=== PATIENT | female | born 1975 | race Caucasian/White ===

== ENCOUNTER → 2016-12-27 | Outpatient (REF) | payer OTHER ==
[~2016-12-27] MED LIST: ACET50TA PO; BENA25TA4 PO; IBUP-1022 PO; IBUP600T26 PO; IBUP60TA PO; LORTTAB5 PO; OXYC1TAB23 PO; PRENTAB9 PO; ZOFR20TA PO; [UNRECOGNIZED DRUG - CODE] PO
[2016-12-27 20:02] LABS: MEAN CORPUSCULAR HGB CONC 34.3 g/dl (32.0-36.5); MEAN CORPUSCULAR VOLUME 93.4 fl (80.0-96.0); RED CELL DISTRIBUTION WIDTH 13.1 % (11.5-14.5); WHITE BLOOD COUNT 7.5 K/mm3 (4.0-10.0)
[2016-12-27 20:25] LABS: ALBUMIN/GLOBULIN RATIO 1.25 (1.00-1.93); ALKALINE PHOSPHATASE 58 U/L (45-117); ALT/SGPT 15 U/L (12-78); ANION GAP 6 MEQ/L (8-16); AST/SGOT 6 U/L (15-37); BILIRUBIN,TOTAL 1.2 MG/DL (0.2-1.0); BLOOD UREA NITROGEN 12 MG/DL (7-18); CALCIUM LEVEL 9.2 MG/DL (8.5-10.1); CARBON DIOXIDE LEVEL 29 MEQ/L (21-32); CHLORIDE LEVEL 106 MEQ/L (98-107); CREATININE FOR GFR 0.65 MG/DL (0.55-1.02); FREE T4 0.83 NG/DL (0.76-1.46); GLOMERULAR FILTRATION RATE > 60.0 (>58); GLUCOSE, FASTING 78 MG/DL (70-105); SODIUM LEVEL 141 MEQ/L (136-145); TOTAL PROTEIN 7.2 GM/DL (6.4-8.2)
[2016-12-28 10:53] LABS: THYROID PEROXIDASE ANTIBODY > 1300.0 U/ML (<60.0)
== END ==
LOC: M SFHCADAM 15:08
PROVIDERS: ATTEND Physician Assistant
DX: E03.9 Hypothyroidism, unspecified (principal); R42 Dizziness and giddiness; E55.9 Vitamin D deficiency, unspecified

== ENCOUNTER → 2017-02-07 | Outpatient (CLI) | payer OTHER ==
--- NOTE | 2017-02-20 09:42 | REP ---
MRI BRAIN WITHOUT CONTRAST: 02/07/2017. Clinical history: Vertigo for a few weeks. Technique: Sagittal T1, axial T1, T2, FLAIR, diffusion weighted images and ADC mapping sequences provided. Findings: The lateral ventricles are midline, symmetric and without dilatation or displacement. Basal ganglia appear symmetric and grossly normal. The alcazar-white junction differentiation was also well maintained. There are no T2 or FLAIR white matter hyperintense foci in the white matter tracts in either hemisphere. The cortical stripe is preserved. There is no vascular territory infarct, intracranial hemorrhage, mass or mass effect. No cortical atrophy or extra-axial fluid collection. Brainstem and cerebellum grossly intact. The seventh/eighth cranial nerve complexes were symmetric and normal. Slightly asymmetrically larger right than left temporal horn from the lateral ventricles. Orbits and contents symmetric and normal. There is deviation of nasal septum towards the left anteriorly and minor ethmoid sinus mucosal thickening. The other sinuses were clear. The corpus callosum, optic chiasm and pituitary are normal. There is no cerebellar tonsillar ectopia. Diffusion weighted images and the ADC mapping sequences show no evidence of acute ischemia. Impression: 1. No intracranial hemorrhage, acute infarct, mass, mass effect or edema. There is no atrophy or ventriculomegaly. Slightly asymmetrically larger right than left temporal horn of the lateral ventricles, anatomic variation is most likely. 2. Diffusion-weighted images and ADC mapping sequences show no evidence of restricted water diffusion or acute ischemia. 3. Minor ethmoid sinus mucosal thickening. Deviation of nasal septum towards the left. 4. This study is presented for my initial review on the date of this dictation. An earlier dictation could not be retrieved from the voice bank. Signed by Dipesh Mejía MD 02/20/2017 03:43 P
== END ==
LOC: M RAD 14:51
PROVIDERS: ATTEND Physician Assistant
DX: R42 Dizziness and giddiness (principal)

== ENCOUNTER → 2017-05-30 | Outpatient (REF) | payer OTHER | LOC: M LAB REF 17:32 | PROVIDERS: ATTEND Advanced Practice Midwife | DX: Z12.4 Encounter for screening for malignant neoplasm of cervix (principal) ==

== ENCOUNTER → 2017-06-09 | Outpatient (CLI) | payer OTHER ==
[2017-06-09 14:20] LABS: FREE T4 0.96 NG/DL (0.76-1.46)
== END ==
LOC: M RAD 11:57
DX: N92.0 Excessive and frequent menstruation with regular cycle (principal); D25.2 Subserosal leiomyoma of uterus
CPT/HCPCS: 76856

== ENCOUNTER → 2017-07-15 | Outpatient (REF) | payer OTHER ==
[2017-07-15 11:40] LABS: INFLUENZA A AMPLIFICATION NEGATIVE (NEGATIVE); INFLUENZA B AMPLIFICATION POSITIVE (NEGATIVE); RSV AMPLIFICATION NEGATIVE (NEGATIVE)
== END ==
LOC: M LAB REF 14:12
DX: J11.1 Influenza due to unidentified influenza virus with other respiratory manifestations (principal)

== ENCOUNTER → 2019-04-16 | Outpatient (CLI) | payer OTHER ==
[~2019-04-16] MED LIST changes: -ACET50TA PO; +IBUP600T42 PO; -IBUP60TA PO; +MAPA500T2 PO; -ZOFR20TA PO; +ZOFR4TAB16 PO
--- NOTE | 2019-04-17 08:46 | REP ---
MRI right ankle without contrast: History: Pain in the right ankle and right foot. Rule out chronic anterior talofibular ligament injury. The patient reports pain with morning stiffness. History of arthritis. She reports a lump on the front side of the ankle. There are no comparison radiographs available. Technique: Axial coronal and sagittal imaging planes were utilized. T1 and T2-weighted scans were included with and without fat saturation. MRI findings: Cortical and medullary bone signal intensity are normal. The tibial plafond and talar dome are intact. No evidence of osteochondral defect lesion is seen. There is no evidence of joint effusion or juxtaarticular cyst. No periarticular mass is seen. The proximal plantar fascia are mildly thickened consistent with plantar fasciitis. There is both Achilles and plantar calcaneal spurring. The Achilles tendon has a normal contour, thickness, and homogeneous low signal intensity. There is no evidence of flexor or extensor tendinopathy. There is no evidence of tarsal coalition. The anterior talofibular ligament has an intact appearance. The anterior inferior tibiofibular and the posterior inferior tibiofibular and posterior talofibular ligaments are intact as well. Calcaneal fibular ligament and deltoid ligamentous complex is unremarkable. Impression: No abnormality noted. Electronically Signed by Adrian Harrington MD 04/17/2019 10:22 A
== END ==
LOC: M RAD 18:10
PROVIDERS: ATTEND Orthopaedic Surgery Sports Medicine
DX: M25.571 Pain in right ankle and joints of right foot (principal)

== ENCOUNTER → 2019-07-11 | Outpatient (CLI) | payer OTHER ==
--- NOTE | 2019-07-12 02:12 | REP ---
Clinical: Lower back pain . Technique: AP, lateral, bilateral oblique, and coned-down views. Findings: Alignment and lordosis is maintained. The vertebral bodies including transverse process and spinous processes are intact and normal. There is no evidence for acute fracture / compression injury or subluxation. No evidence for spondylolysis or spondylolisthesis. No significant degenerative change is noted. Impression: Normal age-appropriate lumbosacral spine radiograph series. Electronically Signed by Chevy Espino MD 07/12/2019 02:03 A
== END ==
LOC: M ADAMS 13:44
PROVIDERS: ATTEND Physician Assistant
DX: M54.5 Low back pain (principal)

== ENCOUNTER → 2019-08-13 | Outpatient (REF) | payer OTHER ==
[2019-08-13 13:09] LABS: HEMATOCRIT 34.6 % (36.0-47.0); HEMOGLOBIN 10.6 g/dl (12.0-15.5); MEAN CORPUSCULAR HEMOGLOBIN 26.6 pg (27.0-33.0); MEAN CORPUSCULAR HGB CONC 30.6 g/dl (32.0-36.5); MEAN CORPUSCULAR VOLUME 86.9 fl (80.0-96.0); PLATELET COUNT, AUTOMATED 236 10^3/uL (150-450); RED BLOOD COUNT 3.98 10^6/uL (4.00-5.40); WHITE BLOOD COUNT 6.9 10^3/uL (4.0-10.0)
[2019-08-13 13:11] LABS: ALBUMIN 3.9 GM/DL (3.2-5.2); ALT/SGPT 19 U/L (12-78); BILIRUBIN,TOTAL 0.6 MG/DL (0.2-1.0); BLOOD UREA NITROGEN 14 MG/DL (7-18); CALCIUM LEVEL 8.8 MG/DL (8.5-10.1); CARBON DIOXIDE LEVEL 25 MEQ/L (21-32); CHLORIDE LEVEL 112 MEQ/L (98-107); CHOLESTEROL LEVEL 113 MG/DL (<200); CHOLESTEROL RISK RATIO 2.404 (<5); CREATININE FOR GFR 0.68 MG/DL (0.55-1.30); FREE T4 0.89 NG/DL (0.76-1.46); GLOMERULAR FILTRATION RATE > 60.0 (>58); GLUCOSE, FASTING 94 MG/DL (70-100); HDL CHOLESTEROL 47 MG/DL (>40); LDL CHOLESTEROL 51 MG/DL (<100); NON-HDL-C 66 MG/DL; POTASSIUM SERUM 4.5 MEQ/L (3.5-5.1); SODIUM LEVEL 142 MEQ/L (136-145); TOTAL PROTEIN 6.8 GM/DL (6.4-8.2); TRIGLYCERIDES LEVEL 73 MG/DL (<150)
== END ==
LOC: M SFHCADAM 08-12 15:58
PROVIDERS: ATTEND Physician Assistant
DX: M54.5 Low back pain (principal); E03.9 Hypothyroidism, unspecified; E55.9 Vitamin D deficiency, unspecified

== ENCOUNTER → 2019-08-14 | Outpatient (REF) | payer OTHER ==
[2019-08-14 19:24] LABS: PERCENT SATURATION 5.7 % (13.2-45.0)
[2019-08-14 19:33] LABS: FOLATE 12.3 NG/ML; TOTAL 25(OH) VITAMIN D 16.1 NG/ML (30.0-100.0)
== END ==
LOC: M SFHCADAM 15:26
PROVIDERS: ATTEND Physician Assistant
DX: E55.9 Vitamin D deficiency, unspecified (principal); D50.0 Iron deficiency anemia secondary to blood loss (chronic)

== ENCOUNTER → 2020-05-15 | Outpatient (CLI) | payer OTHER ==
--- NOTE | 2020-05-15 11:08 | REP ---
INDICATION: N63.10 RT BREAST LUMP. Palpable lump in the right breast on clinician breast exam. Patient does not feel. COMPARISON: Mammography none. TECHNIQUE: Bilateral CC and MLO) view(s) were taken. The right breast imaging is augmented by magnified focal spot compression CC, true mediolateral, and MLO views. A skin marker is affixed to the skin at the site of the palpable lump in the right breast. FINDINGS: Scattered fibroglandular elements are seen bilaterally. No suspicious or dominant density is seen. No microcalcification or architectural distortion is seen. No worrisome skin change is appreciated. 3-D tomosynthesis shows no additional finding. Breast parenchyma is nearly fat replaced. Few scattered elements of fibroglandular tissue. No mass lesion is seen in the area of the palpable lump. The Volpara volumetric breast density pattern is B. Targeted right breast sonography: Scanning in the area the palpable lump near the 6 o'clock position retroareolar region right breast shows normal stromal elements. No cyst or mass is seen by ultrasound. No acoustic shadowing or other suspicious finding. IMPRESSION: BIRADS/ACR category 1 negative mammographic and right breast sonographic findings.. This patient's Tyrer-Cuzick lifetime breast cancer risk assessment score is 11.4%. This mammogram was interpreted with the aid of an FDA-approved computer-aided detection system. The patient states she had a clinical breast exam in May of 2020. The patient letter being requested is 8 M2. RECOMMENDATION: Repeat screening mammography recommended 1 year (for women over 40). <Electronically signed by Constantino Harrington > 05/15/20 [id number]
== END ==
LOC: M WHC 08:21
PROVIDERS: ATTEND Advanced Practice Midwife
DX: N63.10 Unspecified lump in the right breast, unspecified quadrant (principal)
CPT/HCPCS: 76642; 77066; G0279

== ENCOUNTER → 2020-05-15 | Outpatient (REF) | payer OTHER | LOC: M SFHCWAGY 13:56 | PROVIDERS: ATTEND Advanced Practice Midwife | DX: Z01.411 Encounter for gynecological examination (general) (routine) with abnormal findings (principal); Z12.4 Encounter for screening for malignant neoplasm of cervix; Z77.9 Other contact with and (suspected) exposures hazardous to health; Z01.419 Encounter for gynecological examination (general) (routine) without abnormal findings ==

== ENCOUNTER → 2020-05-25 | Outpatient (CLI) | payer SELFPAY | LOC: M LABSMTC 14:25 | PROVIDERS: ATTEND Pediatrics | DX: Z20.828 Contact with and (suspected) exposure to other viral communicable diseases (principal) ==

== ENCOUNTER → 2020-07-20 | Outpatient (CLI) | payer OTHER ==
--- NOTE | 2020-07-20 14:36 | REP ---
INDICATION: R05 PRODUCTIVE COUGH COMPARISON: None. TECHNIQUE: PA and lateral. FINDINGS: The mediastinum and cardiac silhouette are normal. The lung martinez are clear and without acute consolidation, effusion, or pneumothorax. The skeletal structures are intact and normal. IMPRESSION: No acute cardiopulmonary process. <Electronically signed by Chevy Espino > 07/20/20 [id number]
== END ==
LOC: M ADAMS 13:54
PROVIDERS: ATTEND Physician Assistant
DX: R05 Cough (principal)

== ENCOUNTER → 2020-08-05 | Outpatient (CLI) | payer OTHER ==
--- NOTE | 2020-08-05 12:07 | REP ---
INDICATION: N92.1 MENOMETRORRHAGIA,D21.9 LEIOMYOMA. COMPARISON: 06/09/2017. TECHNIQUE: Transabdominal and transvaginal scanning performed. FINDINGS: Uterine dimensions are 11.3 x 5.1 x 6.8 cm. Endometrial echo is 13 mm in AP dimension and centrally placed. The endometrium has a trilaminar appearance. Uterus is mildly enlarged and heterogeneous. Once again a fibroid posteriorly in the left uterus measures 2.4 x 2.6 x 2.5 cm and appears similar to the prior exam. The bladder measures 7.0 x 9.8 x 4.8 cm. The right ovary has dimensions of 3.2 x 1.3 x 3.1 cm. Doppler interrogation was not performed. The left ovary dimensions are 2.8 x 2.6 x 2.0 cm. It's Doppler flow was normal with resistive index of 0.37. Complex cystic structure in the left ovary probably represents a complex dominant follicle to 1.7 x 1.5 x 1.7 cm. There is no other evidence of adnexal mass. No free fluid is seen in the cul-de-sac. IMPRESSION: Left posterior fibroid appears stable. Mildly enlarged heterogeneous uterus. No adnexal mass. No free fluid. Endometrial thickness 13 mm. <Electronically signed by Omkar Hernandez > 08/05/20 [id number]
== END ==
LOC: M WHC 10:26
PROVIDERS: ATTEND Advanced Practice Midwife
DX: N92.1 Excessive and frequent menstruation with irregular cycle (principal); D25.9 Leiomyoma of uterus, unspecified; N83.202 Unspecified ovarian cyst, left side

== ENCOUNTER → 2020-10-23 | Outpatient (CLI) | payer OTHER ==
[~2020-10-23] MED LIST changes: +ACET-907 PO; +CALC500T68 PO; +MULTTAB26 PO; +VIT1CAPS11 PO
== END ==
LOC: M LABSMTC 10:18
PROVIDERS: ATTEND Anesthesiology
DX: Z01.812 Encounter for preprocedural laboratory examination (principal); Z20.822 Contact with and (suspected) exposure to COVID-19

== ENCOUNTER 2020-10-28 07:37 | Day surgery (SDC) | payer OTHER ==
[~2020-10-28] VITALS: Ht 162.6 cm; Wt 113.9 kg
[~2020-10-28 07:37] MED LIST changes: +LR 1,000 ML IV ONE
[2020-10-28] MEDS ORDERED: ONDANSETRON 4MG/2ML VIAL As Ordered ONE (07:57)
[2020-10-28] MEDS ORDERED: dexameTHASONE 4 MG/ML 1ML VIAL (J1100 PER 1MG) As Ordered ONE (07:57)
[2020-10-28] MEDS ORDERED: LIDOCAINE 2% 100MG/5ML SDV (FOR ANES.) As Ordered ONE (07:57)
[2020-10-28] MEDS ORDERED: MIDAZOLAM INJ 2MG/2ML VIAL (J2250 PER 1MG) As Ordered ONE (07:57)
[2020-10-28] MEDS ORDERED: propofoL 200 MG/20 ML VIAL As Ordered ONE (07:57)
[2020-10-28] MEDS ORDERED: fentaNYL 100 MCG/2 ML INJECTION (J3010) As Ordered ONE (07:57)
[2020-10-28] MEDS ORDERED: KETOROLAC 60MG 2ML VIAL As Ordered ONE (08:06)
[2020-10-28] MEDS ORDERED: METOCLOPRAMIDE INJ 10MG/2ML VIAL (J2765 PER 1) As Ordered ONE (08:08)
[2020-10-28 08:17] LABS: HEMATOCRIT 35.6 % (36.0-47.0); HEMOGLOBIN 11.3 g/dl (12.0-15.5); MEAN CORPUSCULAR HEMOGLOBIN 27.9 pg (27.0-33.0); MEAN CORPUSCULAR HGB CONC 31.7 g/dl (32.0-36.5); MEAN CORPUSCULAR VOLUME 87.9 fl (80.0-96.0); PLATELET COUNT, AUTOMATED 261 10^3/uL (150-450); RED BLOOD COUNT 4.05 10^6/uL (4.00-5.40); WHITE BLOOD COUNT 6.7 10^3/uL (4.0-10.0)
[2020-10-28] MEDS ORDERED: LIDOCAINE 1% SDV 30ML VIAL As Ordered ONE (08:40)
[2020-10-28] MEDS ORDERED: ACETAMINOPHEN 1000MG 100ML IV BTL (OFIRMEV) (J0131 PER 10MG) As Ordered ONE (09:06)
--- NOTE | 2020-10-28 09:48 | ROOPDOC ---
[facility] Report Of Operation Report of Operation DATE OF PROCEDURE: 10/28/20 PREPROCEDURE DIAGNOSES: Menorrhagia. POSTPROCEDURE DIAGNOSES: Same. PROCEDURE: Hysteroscopy, D&C, Novasure endometrial ablation. SURGEON: Arya Caraballo MD ANESTHESIA: Gen. via LMA. ESTIMATED BLOOD LOSS: Approximately 10 mL. COMPLICATIONS: None. FINDINGS: normal-appearing endometrial cavity. PROCEDURE NOTE: Patient taken to the operating room where LMA anesthesia was induced. She was prepped draped sterile fashion in dorsal lithotomy position. The bladder was emptied with a catheter. A Speculum was placed in the vagina. The anterior lip of the cervix was grasped with tenaculum. Cervix dilated with tapered dilators. A diagnostic hysteroscope using normal saline as the distention media was inserted through the internal os. Visualization the endometrial cavity revealed findings noted above. Sharp curettage was performed. A NovaSure device was assembled. The cavity length was calculated at 4.5 cm. The device was inserted through the internal os. Cavity width was 4.4 cm. Total power setting was 109 Mcdonald. A successful cavity assessment was performed. Coagulation was initiated. Total coagulation time was 2 minutes. The NovaSure device was removed. A hysteroscope was placed through the internal os. An excellent coagulation effect was noted throughout the endometrium with sparing of the cervix. All instruments removed. Sponge and instrument counts were correct. ARYA CARABALLO MD October 28, 2020 09:46
[2020-10-28] MEDS ORDERED: LR 1,000 ML IV SCH (09:50)
[2020-10-28] MEDS ORDERED: oxyCODONE 5MG TAB PO PRN (09:50)
[2020-10-28] MEDS ORDERED: fentaNYL 100 MCG/2 ML INJECTION (J3010) IV PRN (09:50)
[2020-10-28] MEDS ORDERED: ONDANSETRON 4MG/2ML VIAL IV PRN (09:50)
[2020-10-28] MEDS ORDERED: HYDROMORPHONE HCL 0.5 MG/ 0.5 ML SYRINGE (J1170 PER 1) IV PRN (09:50)
[2020-10-28] MEDS ORDERED: PERCOCET 5MG/325MG TAB PO PRN (09:50)
[2020-10-28] MEDS ORDERED: IBUP-1022 PO ×2 (11:32→11:34)
[2020-10-28] MEDS ORDERED: OXYC1TAB23 PO (11:33)
[2020-10-28 11:35] VITALS: BP 132/78
[2020-11-01] MEDS ORDERED: CEPH500C PO (10:44)
[2020-11-01] MEDS ORDERED: CIPR-249 PO (10:46)
== END 2020-10-28 11:40 | disposition home or self-care (01) ==
LOC: M SDC 07:37
PROVIDERS: ATTEND Specialist
DX: N85.00 Endometrial hyperplasia, unspecified (principal); G43.909 Migraine, unspecified, not intractable, without status migrainosus; R42 Dizziness and giddiness; E03.9 Hypothyroidism, unspecified; E55.9 Vitamin D deficiency, unspecified; E66.9 Obesity, unspecified; Z68.41 Body mass index [BMI] 40.0-44.9, adult; Z79.899 Other long term (current) drug therapy; Z87.891 Personal history of nicotine dependence
CPT/HCPCS: 36415; 58563; 85027; 88305; J0131; J1100; J1885; J2250; J2405; J2765; J3010

== ENCOUNTER → 2021-06-16 | Outpatient (REF) | payer OTHER ==
[~2021-06-16] MED LIST changes: +CEPH500C PO; +CIPR-249 PO; -LR 1,000 ML IV ONE
== END ==
LOC: M SFHCADAM 14:00
PROVIDERS: ATTEND Family Medicine
DX: D50.0 Iron deficiency anemia secondary to blood loss (chronic) (principal); N92.0 Excessive and frequent menstruation with regular cycle; E55.9 Vitamin D deficiency, unspecified

== ENCOUNTER → 2021-06-16 | Outpatient (CLI) | payer OTHER ==
[2021-06-16 16:55] LABS: HEMATOCRIT 38.4 % (36.0-47.0); HEMOGLOBIN 12.7 g/dl (12.0-15.5); MEAN CORPUSCULAR HEMOGLOBIN 30.2 pg (27.0-33.0); MEAN CORPUSCULAR HGB CONC 33.1 g/dl (32.0-36.5); MEAN CORPUSCULAR VOLUME 91.4 fl (80.0-96.0); PLATELET COUNT, AUTOMATED 258 10^3/uL (150-450); WHITE BLOOD COUNT 8.4 10^3/uL (4.0-10.0)
[2021-06-16 17:29] LABS: PERCENT SATURATION 27.5 % (13.2-45.0)
== END ==
LOC: M LAB 16:19
PROVIDERS: ATTEND Family Medicine
DX: D50.0 Iron deficiency anemia secondary to blood loss (chronic) (principal)

== ENCOUNTER → 2021-08-25 | Outpatient (REF) | payer OTHER ==
[2021-08-25 16:31] LABS: ALBUMIN 3.9 GM/DL (3.2-5.2); ALT/SGPT 20 U/L (12-78); BILIRUBIN,TOTAL 0.8 MG/DL (0.2-1.0); BLOOD UREA NITROGEN 11 MG/DL (7-18); CALCIUM LEVEL 8.9 MG/DL (8.5-10.1); CARBON DIOXIDE LEVEL 28 MEQ/L (21-32); CHLORIDE LEVEL 108 MEQ/L (98-107); CHOLESTEROL LEVEL 126 MG/DL (<200); CREATININE FOR GFR 0.65 MG/DL (0.55-1.30); FREE T4 0.81 NG/DL (0.76-1.46); GLOMERULAR FILTRATION RATE > 60.0 (>58); GLUCOSE, FASTING 85 MG/DL (70-100); HDL CHOLESTEROL 43 MG/DL (>40); LDL CHOLESTEROL 50 MG/DL (<100); NON-HDL-C 83 MG/DL; POTASSIUM SERUM 4.1 MEQ/L (3.5-5.1); SODIUM LEVEL 141 MEQ/L (136-145); TOTAL PROTEIN 6.8 GM/DL (6.4-8.2); TRIGLYCERIDES LEVEL 167 MG/DL (<150)
== END ==
LOC: M SFHCADAM 13:56
PROVIDERS: ATTEND Family Medicine
DX: E03.9 Hypothyroidism, unspecified (principal); R76.8 Other specified abnormal immunological findings in serum; J30.89 Other allergic rhinitis

== ENCOUNTER → 2022-03-02 | Outpatient (REF) | payer OTHER ==
[~2022-03-02] MED LIST changes: +AMOX875T2; +FLUTISP
== END ==
LOC: M SFHCADAM 10:56
PROVIDERS: ATTEND Family Medicine
DX: E55.9 Vitamin D deficiency, unspecified (principal); Z53.8 Procedure and treatment not carried out for other reasons

== ENCOUNTER 2022-03-03 15:56 | Emergency (ER) | payer OTHER ==
[~2022-03-03] VITALS: Ht 162.6 cm; Wt 113.6 kg
[~2022-03-03 15:56] MED LIST changes: -AMOX875T2; -FLUTISP
[2022-03-03 15:58] VITALS: BP 133/91
[2022-03-03] MEDS ORDERED: AMOX875T2 (16:04)
[2022-03-03] MEDS ORDERED: FLUTISP (16:04)
[2022-03-03] MEDS ORDERED: LIDOCAINE W/EPINEPHRINE 1% 20ML VIAL SC ONE (17:15)
== END 2022-03-03 18:11 | disposition home or self-care (01) ==
LOC: M ED 15:56
DX: S01.511A Laceration without foreign body of lip, initial encounter (principal); W27.8XXA Contact with other nonpowered hand tool, initial encounter; Y99.0 Civilian activity done for income or pay

== ENCOUNTER → 2022-04-05 | Outpatient (CLI) | payer OTHER ==
[~2022-04-05] MED LIST changes: +AMOX875T2; +FLUTISP
== END ==
LOC: M LAB 16:35
PROVIDERS: ATTEND Family Medicine
DX: E55.9 Vitamin D deficiency, unspecified (principal)

== ENCOUNTER → 2022-04-08 | Outpatient (CLI) | payer OTHER | LOC: M WHC 09:38 | PROVIDERS: ATTEND Advanced Practice Midwife | DX: Z12.31 Encounter for screening mammogram for malignant neoplasm of breast (principal) ==

== ENCOUNTER → 2022-07-22 | Outpatient (REF) | payer OTHER ==
[~2022-07-22] MED LIST changes: +ACET1TAB55 PO; +ASPI81CH33 PO; +CLOB5CR TOP; +ERGO500029 PO; -FLUTISP; +FLUTISP NARES; +IBUP-1114 PO; +NYST-13 TOP; +SENN18TA PO
== END ==
LOC: M PLALAB 13:43
PROVIDERS: ATTEND Advanced Practice Midwife
DX: N90.4 Leukoplakia of vulva (principal)

== ENCOUNTER → 2022-07-25 | Outpatient (CLI) | payer OTHER ==
[~2022-07-25] MED LIST changes: -ACET1TAB55 PO; -ASPI81CH33 PO; -CLOB5CR TOP; +FLUTISP; -FLUTISP NARES; -IBUP-1114 PO; -NYST-13 TOP; -SENN18TA PO
== END ==
LOC: M LABSMTC 11:27
PROVIDERS: ATTEND Anesthesiology
DX: Z01.818 Encounter for other preprocedural examination (principal)

== ENCOUNTER 2022-07-27 09:19 | Day surgery (SDC) | payer OTHER ==
[~2022-07-27] VITALS: Ht 162.6 cm; Wt 112.0 kg
[~2022-07-27 09:19] MED LIST changes: +NS 1,000 ML IV ONE
[2022-07-27] MEDS ORDERED: LIDOCAINE 2% 100MG/5ML SDV (FOR ANES.) As Ordered ONE (10:30)
[2022-07-27] MEDS ORDERED: propofoL 200 MG/20 ML VIAL As Ordered ONE (10:30)
[2022-07-27 11:05] VITALS: BP 146/91
== END 2022-07-27 11:13 | disposition home or self-care (01) ==
LOC: M OPP 09:19
PROVIDERS: ATTEND Surgery
DX: Z12.11 Encounter for screening for malignant neoplasm of colon (principal); K64.1 Second degree hemorrhoids; G43.909 Migraine, unspecified, not intractable, without status migrainosus; Z79.52 Long term (current) use of systemic steroids; Z79.899 Other long term (current) drug therapy; Z91.040 Latex allergy status

== ENCOUNTER 2022-08-07 10:14 | Observation (INO) | payer OTHER ==
[~2022-08-07] VITALS: Ht 162.6 cm; Wt 113.0 kg
[~2022-08-07 10:14] MED LIST changes: -FLUTISP; +FLUTISP NARES; -NS 1,000 ML IV ONE
[2022-08-07] MEDS ORDERED: MORPHINE 4 MG/ML 1ML VIAL IV ONE (11:55)
[2022-08-07 12:08] LABS: HEMATOCRIT 41.5 % (36.0-47.0); HEMOGLOBIN 13.5 g/dl (12.0-15.5); MEAN CORPUSCULAR HEMOGLOBIN 30.3 pg (27.0-33.0); MEAN CORPUSCULAR HGB CONC 32.5 g/dl (32.0-36.5); MEAN CORPUSCULAR VOLUME 93.3 fl (80.0-96.0); PLATELET COUNT, AUTOMATED 262 10^3/uL (150-450); RED BLOOD COUNT 4.45 10^6/uL (4.00-5.40); WHITE BLOOD COUNT 14.6 10^3/uL (4.0-10.0)
[2022-08-07 12:18] LABS: INR 1.05; PARTIAL THROMBOPLASTIN TIME 25.2 SECONDS (24.8-34.2); PROTHROMBIN TIME 13.9 SECONDS (12.5-14.5)
[2022-08-07 12:34] LABS: BILIRUBIN,DIRECT 0.4 MG/DL (<0.4); BILIRUBIN,TOTAL 1.5 MG/DL (0.3-1.2); TOTAL PROTEIN 7.1 G/DL (5.7-8.2)
[2022-08-07 12:38] LABS: BLOOD UREA NITROGEN 13 MG/DL (9-23); CALCIUM LEVEL 8.8 MG/DL (8.5-10.1); CARBON DIOXIDE LEVEL 25 MMOL/L (20-31); CHLORIDE LEVEL 107 MMOL/L (98-107); CREATININE FOR GFR 0.59 MG/DL (0.55-1.30); GLOMERULAR FILTRATION RATE > 60.0 (>58); GLUCOSE, FASTING 104 MG/DL (60-100); POTASSIUM SERUM 4.9 MMOL/L (3.5-5.1); SODIUM LEVEL 139 MMOL/L (136-145)
[2022-08-07] MEDS ORDERED: KETOROLAC 30 MG/ML 1ML VIAL IV PRN (12:45)
[2022-08-07 12:46] LABS: RSV AMPLIFICATION NEGATIVE (NEGATIVE)
[2022-08-07 13:20] VITALS: BP 121/72
[2022-08-07] MEDS ORDERED: NYST-13 TOP (13:48)
[2022-08-07] MEDS ORDERED: CLOB5CR TOP (13:48)
[2022-08-07] MEDS ORDERED: HOME MED LIST COMPLETE! XX SCH (13:50)
[2022-08-07] MEDS ORDERED: MORPHINE 4 MG/ML 1ML VIAL IV PRN (14:55)
[2022-08-07] MEDS ORDERED: fentaNYL 100 MCG/2 ML INJECTION IV PRN ×2 (16:40→19:15)
[2022-08-07] MEDS ORDERED: ROPIvacaine 0.5% 30ML VIAL PN ONE (16:40)
[2022-08-07] MEDS: MIDAZOLAM INJ 2MG/2ML VIAL IV PRN ×2 (17:02→17:03)
[2022-08-07] MEDS ORDERED: TRANEXAMIC ACID 100 MG/ML 10ML VIAL As Ordered ONE (17:09)
[2022-08-07] MEDS ORDERED: ceFAZolin 2 GM/D5W 50 ML IV BAG As Ordered ONE (17:09)
[2022-08-07] MEDS ORDERED: ONDANSETRON 4MG 2ML VIAL As Ordered ONE (17:13)
[2022-08-07] MEDS ORDERED: propofoL 200 MG/20 ML VIAL As Ordered ONE (17:13)
[2022-08-07] MEDS ORDERED: LIDOCAINE 2% 100MG/5ML SDV (FOR ANES.) As Ordered ONE (17:13)
[2022-08-07] MEDS ORDERED: ROCURONIUM BROMIDE 50MG/5ML VIAL As Ordered ONE ×2 (17:13→17:56)
[2022-08-07] MEDS ORDERED: fentaNYL 100 MCG/2 ML INJECTION As Ordered ONE (17:13)
[2022-08-07] MEDS ORDERED: MIDAZOLAM INJ 2MG/2ML VIAL As Ordered ONE (17:13)
[2022-08-07] MEDS ORDERED: ACETAMINOPHEN 1000MG 100ML IV BAG As Ordered ONE (17:46)
[2022-08-07] MEDS ORDERED: SUGAMMADEX SODIUM 500 MG/5 ML VIAL (BRIDION) As Ordered ONE (17:53)
[2022-08-07] MEDS ORDERED: KETOROLAC 60MG 2ML VIAL As Ordered ONE (17:53)
[2022-08-07] MEDS ORDERED: BUPIVACAINE/EPIN 0.5% 30ML VIAL As Ordered ONE (17:54)
[2022-08-07] MEDS ORDERED: METOCLOPRAMIDE INJ 10MG/2ML VIAL As Ordered ONE (18:50)
[2022-08-07] MEDS ORDERED: LR 1,000 ML IV SCH (19:15)
[2022-08-07] MEDS ORDERED: oxyCODONE 5MG TAB PO PRN (19:15)
[2022-08-07] MEDS ORDERED: PROMETHAZINE 25MG/ML 1ML VIAL IV PRN (19:15)
[2022-08-07] MEDS ORDERED: SENNA 8.6 MG TAB (SENOKOT) PO PRN (19:30)
[2022-08-07] MEDS ORDERED: ACETAMINOPHEN TAB 650MG DOSE (2X325MG) PO PRN (19:30)
[2022-08-07] MEDS ORDERED: ONDANSETRON 4MG 2ML VIAL IV PRN (19:30)
[2022-08-07 20:15] VITALS: BP 120/70
[2022-08-07 20:58] VITALS: BP 114/70
[2022-08-07] MEDS ORDERED: ENOXAPARIN 40MG/0.4ML SYRINGE (J1650 PER 10MG) SC SCH (21:00)
[2022-08-07 21:37] VITALS: BP 112/68
[2022-08-07 22:41] VITALS: BP 109/68
[2022-08-08 02:00] VITALS: BP 102/95
[2022-08-08 05:29] VITALS: BP 101/60
[2022-08-08 07:07] LABS: HEMATOCRIT 37.2 % (36.0-47.0); HEMOGLOBIN 12.3 g/dl (12.0-15.5); MEAN CORPUSCULAR HEMOGLOBIN 30.8 pg (27.0-33.0); MEAN CORPUSCULAR HGB CONC 33.1 g/dl (32.0-36.5); MEAN CORPUSCULAR VOLUME 93.2 fl (80.0-96.0); PLATELET COUNT, AUTOMATED 262 10^3/uL (150-450); RED BLOOD COUNT 3.99 10^6/uL (4.00-5.40); WHITE BLOOD COUNT 15.1 10^3/uL (4.0-10.0)
[2022-08-08 07:38] LABS: BLOOD UREA NITROGEN 13 MG/DL (9-23); CALCIUM LEVEL 8.5 MG/DL (8.5-10.1); CARBON DIOXIDE LEVEL 22 MMOL/L (20-31); CHLORIDE LEVEL 107 MMOL/L (98-107); CREATININE FOR GFR 0.56 MG/DL (0.55-1.30); GLOMERULAR FILTRATION RATE > 60.0 (>58); GLUCOSE, FASTING 119 MG/DL (60-100); POTASSIUM SERUM 4.3 MMOL/L (3.5-5.1); SODIUM LEVEL 138 MMOL/L (136-145)
[2022-08-08] MEDS ORDERED: IBUP-1114 PO (09:36)
[2022-08-08] MEDS ORDERED: ACET1TAB55 PO (09:36)
[2022-08-08] MEDS ORDERED: SENN18TA PO (09:36)
[2022-08-08] MEDS ORDERED: ASPI81CH33 PO (09:37)
[2022-08-08 10:00] VITALS: BP 107/68
== END 2022-08-08 14:30 | disposition home health service (06) ==
LOC: M ED 10:14 → M ED INP 10:15 → ENRESERV 12:59 → M MS5PR 13:10
PROVIDERS: ADMIT Internal Medicine; ATTEND Student in an Organized Health Care Education/Training Program
DX: S82.841A Displaced bimalleolar fracture of right lower leg, initial encounter for closed fracture (principal); M77.31 Calcaneal spur, right foot; W10.8XXA Fall (on) (from) other stairs and steps, initial encounter; Y92.098 Other place in other non-institutional residence as the place of occurrence of the external cause; R20.0 Anesthesia of skin; R20.2 Paresthesia of skin; J30.1 Allergic rhinitis due to pollen; L40.9 Psoriasis, unspecified; Z91.040 Latex allergy status; Z79.899 Other long term (current) drug therapy
CPT/HCPCS: 27814; 36415; 64450; 71045; 73590; 73600; 73610; 73630; 80048; 80076; 85027; 85610; 85730; 87631; 93005; 96374; 96375; 96376; 97116; 97161; 97530; 99284; C1713; J0131; J0690; J1100; J1885; J2250; J2270; J2405; J2550; J2765; J3010; S0020

== ENCOUNTER → 2022-08-22 | Outpatient (CLI) | payer OTHER ==
[~2022-08-22] MED LIST changes: +ACET1TAB55 PO; +ASPI81CH33 PO; +CLOB5CR TOP; +IBUP-1114 PO; +NYST-13 TOP; +SENN18TA PO
== END ==
LOC: M SOG 08:08
PROVIDERS: ATTEND Orthopaedic Surgery Adult Reconstructive Orthopaedic Surgery
DX: S82.851D Displaced trimalleolar fracture of right lower leg, subsequent encounter for closed fracture with routine healing (principal); Y93.9 Activity, unspecified; Y92.9 Unspecified place or not applicable

== ENCOUNTER → 2022-09-16 | Outpatient (CLI) | payer OTHER ==
[~2022-09-16] MED LIST changes: +FLUT50SP17 NARES; -FLUTISP NARES
== END ==
LOC: M SOG 13:10
PROVIDERS: ATTEND Orthopaedic Surgery Adult Reconstructive Orthopaedic Surgery
DX: S82.851D Displaced trimalleolar fracture of right lower leg, subsequent encounter for closed fracture with routine healing (principal); Z98.890 Other specified postprocedural states

== ENCOUNTER 2022-10-05 10:00 | Outpatient (RCR) | payer OTHER | END 2022-10-09 | LOC: M PT 10:00 | PROVIDERS: ATTEND Orthopaedic Surgery Adult Reconstructive Orthopaedic Surgery | DX: S82.851D Displaced trimalleolar fracture of right lower leg, subsequent encounter for closed fracture with routine healing (principal) ==

== ENCOUNTER 2022-11-01 07:00 | Outpatient (RCR) | payer OTHER | END 2022-11-09 | LOC: M PT 07:00 | PROVIDERS: ATTEND Orthopaedic Surgery Adult Reconstructive Orthopaedic Surgery | DX: S82.851D Displaced trimalleolar fracture of right lower leg, subsequent encounter for closed fracture with routine healing (principal) ==

== ENCOUNTER → 2022-11-11 | Outpatient (CLI) | payer OTHER | LOC: M SOG 08:02 | PROVIDERS: ATTEND Orthopaedic Surgery | DX: S82.851D Displaced trimalleolar fracture of right lower leg, subsequent encounter for closed fracture with routine healing (principal) ==

== ENCOUNTER 2022-11-30 14:15 | Outpatient (RCR) | payer OTHER ==
[~2022-11-30 14:15] MED LIST changes: +SENN-111 PO; -SENN18TA PO
== END 2022-12-09 ==
LOC: M PT 14:15
PROVIDERS: ATTEND Orthopaedic Surgery Adult Reconstructive Orthopaedic Surgery
DX: S82.851D Displaced trimalleolar fracture of right lower leg, subsequent encounter for closed fracture with routine healing (principal)

== ENCOUNTER 2022-12-28 10:00 | Outpatient (RCR) | payer OTHER | END 2023-01-09 | LOC: M PT 10:00 | PROVIDERS: ATTEND Orthopaedic Surgery Adult Reconstructive Orthopaedic Surgery | DX: S82.851D Displaced trimalleolar fracture of right lower leg, subsequent encounter for closed fracture with routine healing (principal) ==

== ENCOUNTER 2023-01-12 13:27 | Outpatient (RCR) | payer OTHER | END 2023-02-09 | LOC: M PT 13:27 | PROVIDERS: ATTEND Orthopaedic Surgery Adult Reconstructive Orthopaedic Surgery | DX: S82.851D Displaced trimalleolar fracture of right lower leg, subsequent encounter for closed fracture with routine healing (principal) ==

== ENCOUNTER → 2023-02-15 | Outpatient (CLI) | payer OTHER | LOC: M SOG 07:54 | PROVIDERS: ATTEND Orthopaedic Surgery | DX: S82.841D Displaced bimalleolar fracture of right lower leg, subsequent encounter for closed fracture with routine healing (principal); M77.31 Calcaneal spur, right foot; Y93.9 Activity, unspecified; Y92.9 Unspecified place or not applicable ==

== ENCOUNTER → 2023-02-20 | Outpatient (CLI) | payer OTHER | LOC: M PLAIMG 10:13 | PROVIDERS: ATTEND Orthopaedic Surgery | DX: S93.401A Sprain of unspecified ligament of right ankle, initial encounter (principal); Y93.9 Activity, unspecified; Y92.9 Unspecified place or not applicable ==

== ENCOUNTER → 2023-02-22 | Outpatient (CLI) | payer OTHER | LOC: M SOG 09:16 | PROVIDERS: ATTEND Orthopaedic Surgery | DX: S93.431A Sprain of tibiofibular ligament of right ankle, initial encounter (principal); Y93.9 Activity, unspecified; Y92.9 Unspecified place or not applicable ==

== ENCOUNTER → 2023-09-07 | Outpatient (CLI) | payer OTHER ==
[~2023-09-07] MED LIST changes: -FLUT50SP17 NARES; +FLUTISP NARES
[2023-09-07 18:57] LABS: ALBUMIN 3.8 G/DL (3.2-5.2); ALKALINE PHOSPHATASE 46 U/L (46-116); ALT/SGPT < 9 U/L (7.0-40); AST/SGOT 10 U/L (<34); BILIRUBIN,TOTAL 0.7 MG/DL (0.3-1.2); BLOOD UREA NITROGEN 14 MG/DL (9-23); CALCIUM LEVEL 9.3 MG/DL (8.5-10.1); CARBON DIOXIDE LEVEL 26 MMOL/L (20-31); CHLORIDE LEVEL 107 MMOL/L (98-107); CHOLESTEROL LEVEL 140 MG/DL (<200); CHOLESTEROL RISK RATIO 2.93 (<5); CREATININE FOR GFR 0.59 MG/DL (0.55-1.30); GLOMERULAR FILTRATION RATE > 60.0 (>58); GLUCOSE, FASTING 91 MG/DL (60-100); HDL CHOLESTEROL 47.7 MG/DL (>40); HEMATOCRIT 39.9 % (36.0-47.0); HEMOGLOBIN 13.3 g/dl (12.0-15.5); LDL CHOLESTEROL 64.5 MG/DL (<100); MEAN CORPUSCULAR HEMOGLOBIN 31.5 pg (27.0-33.0); MEAN CORPUSCULAR HGB CONC 33.3 g/dl (32.0-36.5); MEAN CORPUSCULAR VOLUME 94.5 fl (80.0-96.0); NON-HDL-C 92.3 MG/DL; PLATELET COUNT, AUTOMATED 247 10^3/uL (150-450); POTASSIUM SERUM 3.9 MMOL/L (3.5-5.1); RED BLOOD COUNT 4.22 10^6/uL (4.00-5.40); SODIUM LEVEL 138 MMOL/L (136-145); TOTAL PROTEIN 6.8 G/DL (5.7-8.2); TRIGLYCERIDES LEVEL 139 MG/DL (<150); WHITE BLOOD COUNT 8.7 10^3/uL (4.0-10.0)
[2023-09-07 18:58] LABS: FREE T4 0.81 NG/DL (0.89-1.76)
[2023-09-07 18:59] LABS: THYROID STIMULATING HORMONE 5.207 uIU/ML (0.55-4.78); TOTAL 25(OH) VITAMIN D 16.5 NG/ML (20.0-100.0)
== END ==
LOC: M WUC 11:20
PROVIDERS: ATTEND Family Medicine
DX: E03.9 Hypothyroidism, unspecified (principal); E55.9 Vitamin D deficiency, unspecified; N92.1 Excessive and frequent menstruation with irregular cycle

== ENCOUNTER → 2023-09-07 | Outpatient (CLI) | payer OTHER ==
[2023-09-07 18:56] LABS: ALBUMIN 3.7 G/DL (3.2-5.2); BILIRUBIN,DIRECT 0.3 MG/DL (<0.4); BILIRUBIN,TOTAL 0.7 MG/DL (0.3-1.2); TOTAL PROTEIN 6.7 G/DL (5.7-8.2)
== END ==
LOC: M WUC 11:19
PROVIDERS: ATTEND Podiatrist
DX: Z79.899 Other long term (current) drug therapy (principal)

== ENCOUNTER → 2023-11-01 | Outpatient (REF) | payer OTHER | LOC: M PLALAB 09:01 | PROVIDERS: ATTEND Advanced Practice Midwife | DX: Z12.4 Encounter for screening for malignant neoplasm of cervix (principal) ==

== ENCOUNTER → 2023-11-01 | Outpatient (CLI) | payer OTHER | LOC: M WHC 08:56 | PROVIDERS: ATTEND Advanced Practice Midwife | DX: Z12.31 Encounter for screening mammogram for malignant neoplasm of breast (principal); R92.313 Mammographic fatty tissue density, bilateral breasts ==

== ENCOUNTER → 2024-03-11 | Outpatient (RCR) | payer OTHER | LOC: M PT 03-05 08:08 | PROVIDERS: ATTEND Orthopaedic Surgery | DX: Z47.89 Encounter for other orthopedic aftercare (principal) ==

== ENCOUNTER 2024-04-10 10:00 | Outpatient (RCR) | payer OTHER ==
[~2024-04-10 10:00] MED LIST changes: -SENN-111 PO; +SENN-165 PO
== END 2024-04-11 ==
LOC: M PT 10:00
PROVIDERS: ATTEND Orthopaedic Surgery
DX: Z47.89 Encounter for other orthopedic aftercare (principal)

== ENCOUNTER 2024-04-23 10:45 | Outpatient (RCR) | payer OTHER | END 2024-05-11 | LOC: M PT 10:45 | PROVIDERS: ATTEND Orthopaedic Surgery | DX: S93.431D Sprain of tibiofibular ligament of right ankle, subsequent encounter (principal); Z98.890 Other specified postprocedural states ==

== ENCOUNTER → 2024-07-04 | Outpatient (REF) | payer OTHER ==
[2024-07-04 18:25] LABS: ALBUMIN 3.9 G/DL (3.2-5.2); ALKALINE PHOSPHATASE 51 U/L (35-104); ALT/SGPT 15 U/L (7.0-40); AST/SGOT 10 U/L (<34); BILIRUBIN,TOTAL 1.1 MG/DL (0.3-1.2); BLOOD UREA NITROGEN 13 MG/DL (9-23); CALCIUM LEVEL 9.7 MG/DL (8.5-10.1); CARBON DIOXIDE LEVEL 26 MMOL/L (20-31); CHLORIDE LEVEL 107 MMOL/L (98-107); CREATININE FOR GFR 0.62 MG/DL (0.55-1.30); GLOMERULAR FILTRATION RATE > 60.0 (>58); GLUCOSE, FASTING 82 MG/DL (60-100); POTASSIUM SERUM 4.8 MMOL/L (3.5-5.1); SODIUM LEVEL 141 MMOL/L (136-145)
[2024-07-04 18:29] LABS: FREE T4 1.09 NG/DL (0.89-1.76); THYROID STIMULATING HORMONE 3.428 uIU/ML (0.55-4.78)
[2024-07-04 18:31] LABS: TOTAL 25(OH) VITAMIN D 31.8 NG/ML (20.0-100.0)
== END ==
LOC: M SFHCADAM 12:00
PROVIDERS: ATTEND Physician Assistant
DX: E03.9 Hypothyroidism, unspecified (principal); E55.9 Vitamin D deficiency, unspecified; E66.813 Obesity, class 3; L98.9 Disorder of the skin and subcutaneous tissue, unspecified

== ENCOUNTER → 2024-07-04 | Outpatient (CLI) | payer OTHER | LOC: M ADAMS 12:15 | PROVIDERS: ATTEND Physician Assistant | DX: M25.511 Pain in right shoulder (principal); M19.011 Primary osteoarthritis, right shoulder ==

== ENCOUNTER 2024-07-29 10:43 | Outpatient (RCR) | payer OTHER | END 2024-08-09 | LOC: M PT 10:43 | PROVIDERS: ATTEND Physician Assistant | DX: M25.511 Pain in right shoulder (principal) ==

== ENCOUNTER 2024-09-05 08:30 | Outpatient (RCR) | payer OTHER | END 2024-09-09 | LOC: M PT 08:30 | PROVIDERS: ATTEND Physician Assistant | DX: M25.511 Pain in right shoulder (principal) ==

== ENCOUNTER 2024-09-25 10:42 | Outpatient (RCR) | payer OTHER ==
[~2024-09-25 10:42] MED LIST changes: -NYST-13 TOP; +NYST0.1C TOP
== END 2024-10-09 ==
LOC: M PT 10:42
PROVIDERS: ATTEND Physician Assistant
DX: M25.511 Pain in right shoulder (principal)

== ENCOUNTER 2025-04-10 12:28 | Outpatient (RCR) | payer OTHER ==
[~2025-04-10 12:28] MED LIST changes: -IBUP-1022 PO
== END 2025-04-11 ==
LOC: M PT 12:28
PROVIDERS: ATTEND Orthopaedic Surgery
DX: M75.81 Other shoulder lesions, right shoulder (principal)

== ENCOUNTER 2025-05-07 08:30 | Outpatient (RCR) | payer OTHER | END 2025-05-11 | LOC: M PT 08:30 | PROVIDERS: ATTEND Orthopaedic Surgery | DX: M75.81 Other shoulder lesions, right shoulder (principal) ==

== ENCOUNTER 2025-05-19 08:21 | Outpatient (RCR) | payer OTHER | END 2025-06-11 | LOC: M PT 08:21 | PROVIDERS: ATTEND Orthopaedic Surgery | DX: M75.81 Other shoulder lesions, right shoulder (principal) ==